=== PATIENT | male | born 1950 | race African-American/Black ===

== ENCOUNTER 2017-08-26 22:21 | Emergency (ER) | payer MEDICARE, MEDICAID ==
[~2017-08-26] VITALS: Ht 175.3 cm; Wt 95.0 kg
[~2017-08-26 22:21] MED LIST: AMLO10TA80 PO; ATOR40TA70 PO; HALO5TAB PO; HYDR25TA PO; LISI-604 PO
[2017-08-27] MEDS ORDERED: HYDROCODONE/ACETAMINOPHEN 10/325MG TABLET PO ONE
[2017-08-27 00:21] LABS: EOSINOPHILS % 1.2 % (0.0-5.0); HEMATOCRIT. 37.8 % (42.0-52.0); HEMOGLOBIN. 12.3 g/dL (14.0-18.0); LYMPHOCYTES % 30.9 % (20.0-50.0); MEAN CORPUSCULAR HEMOGLOBIN 30.2 pg (28.0-32.0); MEAN CORPUSCULAR VOLUME 92.8 fL (80.0-94.0); MEAN PLATELET VOLUME 8.1 fl (7.4-10.4); MONOCYTES % 9.4 % (2.0-8.0); NEUTROPHILS % 57.5 % (40.0-76.0); PLATELET 270 x1000/uL (130-400); RED BLOOD CELL COUNT 4.08 mill/uL (4.7-6.1); RED CELL DISTRIBUTION WIDTH 13.3 % (11.6-14.6)
[2017-08-27 00:28] LABS: PROTHROMBIN TIME 10.6 sec (9.4-11.6)
[2017-08-27 00:30] LABS: CHLORIDE 103 mEq/L (98-107)
[2017-08-27 00:45] LABS: CARBON DIOXIDE 27 mEq/L (21-32); ETHANOL BLOOD < 10 mg/dL
[2017-08-27] MEDS ORDERED: SODIUM CHLORIDE 0.9% 1,000 ML IV ONE (00:57)
[2017-08-27] MEDS ORDERED: INSULIN REGULAR (HUMULIN R) 300UNITS/3ML IV SCH (01:38)
[2017-08-27 02:04] LABS: *AMPHETAMINES SCREEN URINE NEGATIVE (NEGATIVE); *BARBITURATES SCREEN URINE NEGATIVE (NEGATIVE); *BENZODIAZEPINES SCREEN URINE NEGATIVE (NEGATIVE); *COCAINE SCREEN URINE NEGATIVE (NEGATIVE); CANNABINOID URINE SCREEN NEGATIVE (NEGATIVE); METHADONE URINE SCREEN NEGATIVE (NEGATIVE); OPIATES URINE SCREEN NEGATIVE (NEGATIVE); PHENCYCLIDINE URINE SCREEN NEGATIVE (NEGATIVE)
[2017-08-27 05:30] VITALS: BP 127/45
== END 2017-08-27 05:40 | disposition home or self-care (01) ==
LOC: ER 22:33
DX: E86.0 Dehydration (principal); E11.65 Type 2 diabetes mellitus with hyperglycemia; D50.9 Iron deficiency anemia, unspecified; R51 Headache; F17.200 Nicotine dependence, unspecified, uncomplicated
CPT/HCPCS: 36415; 70450; 80053; 80305; 82962; 85025; 85610; 96361; 96374; 99285; G0482; J1815; J7030

== ENCOUNTER 2018-08-02 12:30 | Inpatient (IN) | payer MEDICARE, MEDICAID ==
[~2018-08-02] VITALS: Ht 177.8 cm; Wt 90.7 kg
[2018-08-02 13:59] LABS: HEMATOCRIT. 37.9 % (42.0-52.0); HEMOGLOBIN. 12.9 g/dL (14.0-18.0); MEAN CORPUSCULAR HEMOGLOBIN 32.1 pg (28.0-32.0); MEAN CORPUSCULAR VOLUME 94.6 fL (80.0-94.0); MEAN PLATELET VOLUME 8.2 fl (7.4-10.4); PLATELET 199 x1000/uL (130-400); RED BLOOD CELL COUNT 4.01 mill/uL (4.7-6.1); RED CELL DISTRIBUTION WIDTH 14.4 % (11.6-14.6)
[2018-08-02 14:06] LABS: CHLORIDE 104 mEq/L (98-107)
[2018-08-02 14:35] LABS: PLATELET ESTIMATE NORMAL
[2018-08-02 23:45] VITALS: BP 100/70
[2018-08-03] VITALS: BP 100/70
[2018-08-03] MEDS ORDERED: MEDICATION NOT ON FORMULARY EA (Acetaminophen (Tylenol) 650 MG) PO SCH (01:15)
[2018-08-03] MEDS ORDERED: ATOR40TA70 PO (01:50)
[2018-08-03] MEDS ORDERED: STAR120 PO (01:50)
[2018-08-03] MEDS ORDERED: GABA300S PO (01:50)
[2018-08-03] MEDS ORDERED: DOCU-138 PO (01:50)
[2018-08-03] MEDS ORDERED: ACET-2178 PO (01:50)
[2018-08-03] MEDS ORDERED: LINA5TAB PO (01:50)
[2018-08-03] MEDS ORDERED: ASPI-1158 PO (01:50)
[2018-08-03] MEDS ORDERED: GLYB5TAB7 PO (01:50)
[2018-08-03] MEDS ORDERED: DIVA500T3 PO (01:50)
[2018-08-03] MEDS ORDERED: CLOP75TA16 PO (01:50)
[2018-08-03] MEDS ORDERED: LISI-186 PO (01:50)
[2018-08-03] MEDS ORDERED: HYDR-2510 PO (01:50)
[2018-08-03] MEDS ORDERED: PROT40 PO (01:50)
[2018-08-03] MEDS ORDERED: RISP2 PO (01:50)
[2018-08-03] MEDS ORDERED: ACETAMINOPHEN 325MG TABLET PO PRN (02:45)
[2018-08-03] MEDS ORDERED: DEXTROSE 50% WATER 50ML SYRINGE IV PRN (03:15)
[2018-08-03 04:00] VITALS: BP 116/61
[2018-08-03] MEDS: GABAPENTIN 100MG CAPSULE PO SCH ×3 (07:01→21:14)
[2018-08-03] MEDS: PANTOPRAZOLE 40MG DR TABLET PO SCH (07:01)
[2018-08-03] MEDS: BLOOD SUGAR DIAGNOSTIC STRIP TEST SCH ×4 (07:01→21:14)
[2018-08-03] MEDS ORDERED: MEDICATION NOT ON FORMULARY EA (Pantoprazole Sodium (Protonix) 40 MG) PO SCH (07:20)
[2018-08-03] MEDS ORDERED: MEDICATION NOT ON FORMULARY EA (Divalproex Sodium (Depakote) 500 MG) PO SCH (07:50)
[2018-08-03] MEDS: INSULIN LISPRO 100 UNITS/ML SUBCUT SCH ×4 (07:50→21:15)
[2018-08-03 08:00] VITALS: BP 123/64
[2018-08-03] MEDS ORDERED: MEDICATION NOT ON FORMULARY EA (Gabapentin 100 MG) PO SCH (09:00)
[2018-08-03] MEDS ORDERED: MEDICATION NOT ON FORMULARY EA (Aspirin (Aspirin Ec) 81 MG) PO SCH (09:00)
[2018-08-03] MEDS ORDERED: LINAGLIPTIN 5 MG PO SCH (09:00)
[2018-08-03] MEDS ORDERED: MEDICATION NOT ON FORMULARY EA (Clopidogrel Bisulfate (Plavix) 75 MG) PO SCH (09:00)
[2018-08-03] MEDS ORDERED: RISPERIDONE 2 MG PO SCH (09:00)
[2018-08-03] MEDS ORDERED: MEDICATION NOT ON FORMULARY EA (Docusate Sodium (Colace) 100 MG) PO SCH (09:00)
[2018-08-03] MEDS: RISPERIDONE 1MG TABLET PO SCH ×2 (10:11→17:30)
[2018-08-03] MEDS: METFORMIN HCL 500MG TABLET PO SCH ×2 (10:12→17:29)
[2018-08-03] MEDS: DOCUSATE SODIUM 100MG CAPSULE PO SCH (10:12)
[2018-08-03] MEDS: CLOPIDOGREL 75MG TABLET PO SCH (10:12)
[2018-08-03] MEDS: ASPIRIN 81MG TABLET PO SCH (10:12)
[2018-08-03] MEDS: DIVALPROEX SODIUM 250MG DR TABLET PO SCH ×2 (10:16→17:30)
[2018-08-03] MEDS: LINAGLIPTIN 5MG TABLET PO SCH (10:16)
[2018-08-03 16:00] VITALS: BP 103/64
[2018-08-03 16:02] LABS: HEMATOCRIT. 39.9 % (42.0-52.0); HEMOGLOBIN. 13.3 g/dL (14.0-18.0); MEAN CORPUSCULAR VOLUME 95.8 fL (80.0-94.0); MEAN PLATELET VOLUME 8.1 fl (7.4-10.4); PLATELET 198 x1000/uL (130-400); RED BLOOD CELL COUNT 4.17 mill/uL (4.7-6.1); RED CELL DISTRIBUTION WIDTH 14.6 % (11.6-14.6)
[2018-08-03 16:18] LABS: CHLORIDE 103 mEq/L (98-107)
[2018-08-03 16:29] LABS: CREATINE KINASE 167 IU/L (39-308)
[2018-08-03 16:30] LABS: T4 FREE 1.1 ng/dL (0.76-1.46)
[2018-08-03 16:31] LABS: CREATINE KINASE MB FRACTION 1.9 ng/mL (0.5-3.6)
[2018-08-03 17:11] LABS: ATYPICAL LYMPHOCYTES 1; PLATELET ESTIMATE NORMAL
[2018-08-03 20:00] VITALS: BP 107/77
[2018-08-03 23:36] LABS: CREATINE KINASE MB FRACTION 1.8 ng/mL (0.5-3.6)
[2018-08-03 23:52] VITALS: BP 117/70
[2018-08-04 04:00] VITALS: BP 108/76
[2018-08-04] MEDS: BLOOD SUGAR DIAGNOSTIC STRIP TEST SCH ×2 (06:25→12:11)
[2018-08-04] MEDS: GABAPENTIN 100MG CAPSULE PO SCH ×2 (06:25→14:40)
[2018-08-04] MEDS: PANTOPRAZOLE 40MG DR TABLET PO SCH (06:25)
[2018-08-04] MEDS: INSULIN LISPRO 100 UNITS/ML SUBCUT SCH ×2 (07:50→12:19)
[2018-08-04 08:00] VITALS: BP 85/51
[2018-08-04] MEDS: DOCUSATE SODIUM 100MG CAPSULE PO SCH (09:00)
[2018-08-04] MEDS: LINAGLIPTIN 5MG TABLET PO SCH (09:08)
[2018-08-04] MEDS: METFORMIN HCL 500MG TABLET PO SCH (09:08)
[2018-08-04] MEDS: RISPERIDONE 1MG TABLET PO SCH (09:08)
[2018-08-04] MEDS: DIVALPROEX SODIUM 250MG DR TABLET PO SCH (09:08)
[2018-08-04] MEDS: ASPIRIN 81MG TABLET PO SCH (09:09)
[2018-08-04] MEDS: CLOPIDOGREL 75MG TABLET PO SCH (09:09)
[2018-08-04 11:08] LABS: CREATINE KINASE 120 IU/L (39-308)
[2018-08-04 11:54] VITALS: BP 107/53
[2018-08-04] MEDS ORDERED: BENZONATATE 100MG CAPSULE PO PRN (12:00)
[2018-08-04] MEDS ORDERED: SODIUM CHLORIDE 0.9% 1,000 ML IV SCH (15:45)
[2018-08-04 17:14] VITALS: BP 113/72
== END 2018-08-04 18:00 | DRG 312 ==
LOC: ER 13:57 → 6WST 15:56 → ENRESERV 20:27 → 6WST 23:47
PROVIDERS: ADMIT Internal Medicine; ATTEND Internal Medicine
DX: R55 Syncope and collapse (principal); E44.1 Mild protein-calorie malnutrition; E78.5 Hyperlipidemia, unspecified; E11.9 Type 2 diabetes mellitus without complications; E78.1 Pure hyperglyceridemia; I10 Essential (primary) hypertension; F20.9 Schizophrenia, unspecified; W18.30XA Fall on same level, unspecified, initial encounter; Y93.89 Activity, other specified; Y92.128 Other place in nursing home as the place of occurrence of the external cause; Y99.8 Other external cause status; I25.2 Old myocardial infarction; Z86.73 Personal history of transient ischemic attack (TIA), and cerebral infarction without residual deficits; Z91.81 History of falling; Z68.28 Body mass index [BMI] 28.0-28.9, adult; Z79.899 Other long term (current) drug therapy
CPT/HCPCS: 36415; 70551; 71045; 78582; 80048; 80061; 82550; 82553; 82962; 83036; 83880; 84134; 84439; 84443; 84484; 85379; 93005; 93306; 93880; 93970; 97162; 99285; A9558; J1815

== ENCOUNTER 2018-11-05 18:17 | Emergency (ER) | payer MEDICARE, MEDICAID ==
[~2018-11-05] VITALS: Ht 170.2 cm; Wt 91.0 kg
[~2018-11-05 18:17] MED LIST changes: +ACET-2178 PO; +ASPI-1158 PO; +CLOP75TA16 PO; +DIVA500T3 PO; +DOCU-138 PO; +GABA300S PO; +GLYB5TAB7 PO; +HYDR-2510 PO; +LINA5TAB PO; +LISI-186 PO; +PROT40 PO; +RISP2 PO; +STAR120 PO
[2018-11-05 23:15] LABS: BASOPHILS % 0.5 % (0.0-2.0); EOSINOPHILS % 0.1 % (0.0-5.0); HEMATOCRIT. 36.8 % (42.0-52.0); HEMOGLOBIN. 12.5 g/dL (14.0-18.0); LYMPHOCYTES % 16.5 % (20.0-50.0); MEAN CORPUSCULAR HEMOGLOBIN 31.9 pg (28.0-32.0); MEAN CORPUSCULAR VOLUME 93.6 fL (80.0-94.0); MEAN PLATELET VOLUME 8.8 fl (7.4-10.4); NEUTROPHILS % 69.9 % (40.0-76.0); PLATELET 193 x1000/uL (130-400); RED BLOOD CELL COUNT 3.94 mill/uL (4.7-6.1); RED CELL DISTRIBUTION WIDTH 13.8 % (11.6-14.6)
[2018-11-05 23:21] LABS: CHLORIDE 104 mEq/L (98-107)
[2018-11-06 01:08] LABS: CLARITY URINE CLEAR (CLEAR); COLOR URINE YELLOW (YELLOW); KETONES URINE NEGATIVE (NEGATIVE); LEUKOCYTE ESTERASE URINE NEGATIVE (NEGATIVE); NITRITE URINE NEGATIVE (NEGATIVE); OCCULT BLOOD URINE 2+ (NEGATIVE); PH URINE 7.5 (4.5-8.0); PROTEIN URINE NEGATIVE (NEGATIVE); SPECIFIC GRAVITY URINE 1.017 (1.005-1.030)
[2018-11-06 04:31] VITALS: BP 132/71
== END 2018-11-06 04:32 | disposition home or self-care (01) ==
LOC: ER 18:17
DX: R53.1 Weakness (principal); E11.9 Type 2 diabetes mellitus without complications; I10 Essential (primary) hypertension; F20.9 Schizophrenia, unspecified; Z86.73 Personal history of transient ischemic attack (TIA), and cerebral infarction without residual deficits; Z79.01 Long term (current) use of anticoagulants; Z79.82 Long term (current) use of aspirin; Z79.899 Other long term (current) drug therapy
CPT/HCPCS: 36415; 99283

== ENCOUNTER 2019-04-23 15:19 | Inpatient (IN) | payer MEDICARE, MEDICAID ==
[~2019-04-23] VITALS: Ht 175.3 cm; Wt 95.3 kg
[~2019-04-23 15:19] MED LIST changes: -ACET-2178 PO; -CLOP75TA16 PO; +CLOP75TA4 PO; +TOPUD PO
[2019-04-23] MEDS ORDERED: SODIUM CHLORIDE 0.9% 1,000 ML IV ONE (16:02)
[2019-04-23 16:45] LABS: BASOPHILS % 0.8 % (0.0-2.0); EOSINOPHILS % 0.5 % (0.0-5.0); HEMATOCRIT. 33.7 % (42.0-52.0); HEMOGLOBIN. 11.5 g/dL (14.0-18.0); LYMPHOCYTES % 34.8 % (20.0-50.0); MEAN CORPUSCULAR HEMOGLOBIN 32.5 pg (28.0-32.0); MEAN CORPUSCULAR VOLUME 95.2 fL (80.0-94.0); MEAN PLATELET VOLUME 8.1 fl (7.4-10.4); MONOCYTES % 10.8 % (2.0-8.0); NEUTROPHILS % 53.1 % (40.0-76.0); PLATELET 198 x1000/uL (130-400); RED BLOOD CELL COUNT 3.54 mill/uL (4.7-6.1); RED CELL DISTRIBUTION WIDTH 14.4 % (11.6-14.6)
[2019-04-23 16:52] LABS: CHLORIDE 109 mEq/L (98-107)
[2019-04-23 16:56] LABS: ETHANOL BLOOD < 10 mg/dL
[2019-04-23 17:00] LABS: CREATINE KINASE 230 IU/L (39-308)
[2019-04-23 18:15] LABS: CLARITY URINE CLEAR (CLEAR); COLOR URINE YELLOW (YELLOW); KETONES URINE NEGATIVE (NEGATIVE); LEUKOCYTE ESTERASE URINE NEGATIVE (NEGATIVE); NITRITE URINE NEGATIVE (NEGATIVE); OCCULT BLOOD URINE NEGATIVE (NEGATIVE); PH URINE 5.5 (4.5-8.0); PROTEIN URINE NEGATIVE (NEGATIVE); SPECIFIC GRAVITY URINE 1.016 (1.005-1.030)
[2019-04-23 18:26] LABS: *BARBITURATES SCREEN URINE NEGATIVE (NEGATIVE); *BENZODIAZEPINES SCREEN URINE NEGATIVE (NEGATIVE)
[2019-04-23 18:27] LABS: *AMPHETAMINES SCREEN URINE NEGATIVE (NEGATIVE); *COCAINE SCREEN URINE NEGATIVE (NEGATIVE); CANNABINOID URINE SCREEN NEGATIVE (NEGATIVE); METHADONE URINE SCREEN NEGATIVE (NEGATIVE); OPIATES URINE SCREEN NEGATIVE (NEGATIVE); PHENCYCLIDINE URINE SCREEN NEGATIVE (NEGATIVE)
[2019-04-23 22:00] VITALS: BP 150/80
[2019-04-23 23:06] VITALS: BP 150/80
[2019-04-23] MEDS ORDERED: AMLO5TAB88 PO (23:43)
[2019-04-23] MEDS ORDERED: GABA-529 PO (23:43)
[2019-04-24 00:56] VITALS: BP 127/73
[2019-04-24] MEDS ORDERED: ACETAMINOPHEN 325MG TABLET PO PRN ×2 (01:00→12:15)
[2019-04-24 04:00] VITALS: BP 132/74
[2019-04-24] MEDS: PANTOPRAZOLE 40MG DR TABLET PO SCH (06:34)
[2019-04-24 08:00] VITALS: BP 122/66
[2019-04-24] MEDS: HYDROCHLOROTHIAZIDE 25MG TABLET PO SCH (09:14)
[2019-04-24] MEDS: AMLODIPINE 5MG TABLET PO SCH (09:14)
[2019-04-24] MEDS: GABAPENTIN 100MG CAPSULE PO SCH ×3 (09:14→16:35)
[2019-04-24] MEDS: CLOPIDOGREL 75MG TABLET PO SCH (09:14)
[2019-04-24] MEDS: LINAGLIPTIN 5MG TABLET PO SCH (09:14)
[2019-04-24] MEDS: DIVALPROEX SODIUM 250MG DR TABLET PO SCH ×2 (09:15→16:35)
[2019-04-24] MEDS: GLYBURIDE 5MG TABLET PO SCH ×2 (09:16→16:35)
[2019-04-24] MEDS: LISINOPRIL 5MG TABLET PO SCH ×2 (09:16→21:32)
[2019-04-24] MEDS: RISPERIDONE 1MG TABLET PO SCH ×2 (09:16→16:35)
[2019-04-24] MEDS: ENOXAPARIN 30MG/0.3ML SYR SUBCUT SCH ×2 (09:17→21:32)
[2019-04-24 10:49] LABS: BASOPHILS % 0.5 % (0.0-2.0); HEMOGLOBIN. 11.7 g/dL (14.0-18.0); LYMPHOCYTES % 37.8 % (20.0-50.0); MEAN CORPUSCULAR HEMOGLOBIN 31.8 pg (28.0-32.0); MEAN CORPUSCULAR VOLUME 95.2 fL (80.0-94.0); MEAN PLATELET VOLUME 8.2 fl (7.4-10.4); MONOCYTES % 10.6 % (2.0-8.0); NEUTROPHILS % 50.1 % (40.0-76.0); PLATELET 190 x1000/uL (130-400); RED BLOOD CELL COUNT 3.68 mill/uL (4.7-6.1); RED CELL DISTRIBUTION WIDTH 13.8 % (11.6-14.6)
[2019-04-24 11:09] LABS: CHLORIDE 109 mEq/L (98-107)
[2019-04-24 12:00] VITALS: BP 113/68
[2019-04-24] MEDS ORDERED: NA PHOS,M-B/NA PHOS,DI-BA ENEMA 118ML PR PRN (12:15)
[2019-04-24] MEDS ORDERED: DIPHENHYDRAMINE 50MG/ML VIAL IV PRN (12:15)
[2019-04-24] MEDS: INSULIN LISPRO 100 UNITS/ML SUBCUT SCH ×3 (12:15→21:00)
[2019-04-24] MEDS ORDERED: ACETAMINOPHEN 650MG/20.3ML UDC GT PRN (12:15)
[2019-04-24] MEDS ORDERED: DEXTROSE 50% WATER 50ML SYRINGE IV PRN (12:15)
[2019-04-24] MEDS ORDERED: CLONIDINE 0.1MG TABLET PO PRN (12:15)
[2019-04-24] MEDS ORDERED: IPRATROPIUM/ALBUTEROL 0.5-3(2.5)MG/3ML NEB HHN PRN (12:15)
[2019-04-24] MEDS ORDERED: MAGNESIUM/ALUMINUM HYDROXIDE/SIMETHICONE 30ML UDC PO PRN (12:15)
[2019-04-24] MEDS: SODIUM CHLORIDE 0.9% INJ 3ML FLUSH IVF SCH ×2 (13:55→21:34)
[2019-04-24 16:01] VITALS: BP 106/67
[2019-04-24] MEDS: BLOOD SUGAR DIAGNOSTIC STRIP TEST SCH ×2 (16:45→21:34)
[2019-04-24 20:00] VITALS: BP 110/62
[2019-04-24] MEDS: ATORVASTATIN CALCIUM 40MG TABLET PO SCH (21:34)
[2019-04-25] VITALS: BP 129/77
[2019-04-25 04:00] VITALS: BP 137/75
[2019-04-25 06:31] LABS: BASOPHILS % 0.5 % (0.0-2.0); HEMOGLOBIN. 11.7 g/dL (14.0-18.0); LYMPHOCYTES % 44.5 % (20.0-50.0); MEAN CORPUSCULAR VOLUME 95.3 fL (80.0-94.0); MEAN PLATELET VOLUME 8.3 fl (7.4-10.4); MONOCYTES % 11.7 % (2.0-8.0); NEUTROPHILS % 42.3 % (40.0-76.0); PLATELET 183 x1000/uL (130-400); RED BLOOD CELL COUNT 3.67 mill/uL (4.7-6.1); RED CELL DISTRIBUTION WIDTH 14.3 % (11.6-14.6)
[2019-04-25] MEDS: PANTOPRAZOLE 40MG DR TABLET PO SCH (06:41)
[2019-04-25] MEDS: GLYBURIDE 5MG TABLET PO SCH (06:41)
[2019-04-25] MEDS: SODIUM CHLORIDE 0.9% INJ 3ML FLUSH IVF SCH ×3 (06:41→21:18)
[2019-04-25] MEDS: BLOOD SUGAR DIAGNOSTIC STRIP TEST SCH ×4 (06:45→21:18)
[2019-04-25 06:50] LABS: CHLORIDE 106 mEq/L (98-107)
[2019-04-25 07:04] LABS: HDL CHOLESTEROL 39 mg/dL (40-59)
[2019-04-25 07:07] LABS: LDL CHOLESTEROL 54 mg/dL (5-100)
[2019-04-25 07:11] LABS: VITAMIN B12 SERUM 1128 pg/mL (211-911)
[2019-04-25] MEDS: INSULIN LISPRO 100 UNITS/ML SUBCUT SCH ×4 (07:15→21:00)
[2019-04-25 08:00] VITALS: BP 97/52
[2019-04-25] MEDS: LINAGLIPTIN 5MG TABLET PO SCH (09:19)
[2019-04-25] MEDS: CLOPIDOGREL 75MG TABLET PO SCH (09:19)
[2019-04-25] MEDS: DIVALPROEX SODIUM 250MG DR TABLET PO SCH ×2 (09:20→18:18)
[2019-04-25] MEDS: GABAPENTIN 100MG CAPSULE PO SCH ×3 (09:20→17:00)
[2019-04-25] MEDS: AMLODIPINE 5MG TABLET PO SCH (09:20)
[2019-04-25] MEDS: HYDROCHLOROTHIAZIDE 25MG TABLET PO SCH (09:20)
[2019-04-25] MEDS: LISINOPRIL 5MG TABLET PO SCH ×2 (09:20→21:00)
[2019-04-25] MEDS: RISPERIDONE 1MG TABLET PO SCH ×2 (09:20→18:18)
[2019-04-25] MEDS: ENOXAPARIN 30MG/0.3ML SYR SUBCUT SCH ×2 (09:21→21:18)
[2019-04-25 10:16] LABS: INR 1.1; PROTHROMBIN TIME 11.3 sec (9.6-11.0)
[2019-04-25 12:00] VITALS: BP 113/64
[2019-04-25 16:00] VITALS: BP 112/62
[2019-04-25 20:00] VITALS: BP 99/61
[2019-04-25] MEDS: ATORVASTATIN CALCIUM 40MG TABLET PO SCH (21:18)
[2019-04-26] VITALS: BP 102/62
[2019-04-26 04:00] VITALS: BP 115/64
[2019-04-26] MEDS: BLOOD SUGAR DIAGNOSTIC STRIP TEST SCH ×3 (06:36→16:37)
[2019-04-26] MEDS: INSULIN LISPRO 100 UNITS/ML SUBCUT SCH ×3 (06:36→16:57)
[2019-04-26] MEDS ORDERED: GLYBURIDE 2.5MG TABLET PO SCH (06:45)
[2019-04-26] MEDS: SODIUM CHLORIDE 0.9% INJ 3ML FLUSH IVF SCH ×2 (06:53→13:52)
[2019-04-26] MEDS: PANTOPRAZOLE 40MG DR TABLET PO SCH (06:53)
[2019-04-26 08:00] VITALS: BP 108/55
[2019-04-26] MEDS: LISINOPRIL 5MG TABLET PO SCH (09:00)
[2019-04-26] MEDS: AMLODIPINE 5MG TABLET PO SCH (09:00)
[2019-04-26] MEDS: GABAPENTIN 100MG CAPSULE PO SCH ×3 (09:21→16:56)
[2019-04-26] MEDS: HYDROCHLOROTHIAZIDE 25MG TABLET PO SCH (09:22)
[2019-04-26] MEDS: DIVALPROEX SODIUM 250MG DR TABLET PO SCH ×2 (09:22→16:56)
[2019-04-26] MEDS: RISPERIDONE 1MG TABLET PO SCH ×2 (09:22→16:56)
[2019-04-26] MEDS: LINAGLIPTIN 5MG TABLET PO SCH (09:22)
[2019-04-26] MEDS: CLOPIDOGREL 75MG TABLET PO SCH (09:22)
[2019-04-26] MEDS: ENOXAPARIN 30MG/0.3ML SYR SUBCUT SCH (09:23)
[2019-04-26 12:00] VITALS: BP 110/59
[2019-04-26 14:30] VITALS: BP 110/59
[2019-04-26 16:00] VITALS: BP 107/70
[2019-04-27 04:12] LABS: HIV SCREEN 4G Non Reactive (Non Reactive)
== END 2019-04-26 18:32 | DRG 56 ==
LOC: ER 15:19 → 5WST 18:43 → EDBEDREQ 18:47 → EDBEDREQTM 18:47 → ENRESERV 20:50
PROVIDERS: ADMIT Family Medicine; ATTEND Family Medicine
DX: G91.9 Hydrocephalus, unspecified (principal); G93.41 Metabolic encephalopathy; N17.0 Acute kidney failure with tubular necrosis; J84.9 Interstitial pulmonary disease, unspecified; F20.9 Schizophrenia, unspecified; I10 Essential (primary) hypertension; R62.7 Adult failure to thrive; F17.210 Nicotine dependence, cigarettes, uncomplicated; E11.649 Type 2 diabetes mellitus with hypoglycemia without coma; Z86.73 Personal history of transient ischemic attack (TIA), and cerebral infarction without residual deficits; Z79.02 Long term (current) use of antithrombotics/antiplatelets; Z79.82 Long term (current) use of aspirin; Z79.899 Other long term (current) drug therapy; Z68.31 Body mass index [BMI] 31.0-31.9, adult
CPT/HCPCS: 36415; 70551; 71045; 80048; 80061; 80305; 80320; 81003; 82550; 82607; 82962; 83605; 83880; 84443; 84484; 87389; 92610; 93005; 97162; 97166; 99285; J1650; J1815; J7030; G0480

== ENCOUNTER 2020-03-01 17:47 | Emergency (ER) | payer MEDICARE, MEDICAID ==
[~2020-03-01] VITALS: Ht 175.3 cm; Wt 82.0 kg
[~2020-03-01 17:47] MED LIST changes: -AMLO10TA80 PO; +AMLO5TAB88 PO; -ASPI-1158 PO; -DOCU-138 PO; +GABA-529 PO; -GABA300S PO; -GLYB5TAB7 PO; -HALO5TAB PO; -HYDR-2510 PO; -HYDR25TA PO; -LISI-604 PO; -RISP2 PO; -STAR120 PO; -TOPUD PO
[2020-03-01 18:36] LABS: BASOPHILS % 0.6 % (0.0-2.0); HEMATOCRIT. 36.8 % (42.0-52.0); HEMOGLOBIN. 12.9 g/dL (14.0-18.0); LYMPHOCYTES % 33.2 % (20.0-50.0); MEAN CORPUSCULAR HEMOGLOBIN 32.8 pg (28.0-32.0); MEAN CORPUSCULAR VOLUME 93.6 fL (80.0-94.0); MEAN PLATELET VOLUME 8.6 fl (7.4-10.4); MONOCYTES % 9.4 % (2.0-8.0); NEUTROPHILS % 55.8 % (40.0-76.0); PLATELET 183 x1000/uL (130-400); RED BLOOD CELL COUNT 3.93 mill/uL (4.7-6.1); RED CELL DISTRIBUTION WIDTH 13.9 % (11.6-14.6)
[2020-03-01 18:51] LABS: PROTHROMBIN TIME 10.9 sec (9.6-11.0)
[2020-03-01 19:14] LABS: CHLORIDE 106 mEq/L (98-107)
[2020-03-01 22:14] LABS: CLARITY URINE CLEAR (CLEAR); COLOR URINE YELLOW (YELLOW); KETONES URINE NEGATIVE (NEGATIVE); LEUKOCYTE ESTERASE URINE NEGATIVE (NEGATIVE); NITRITE URINE NEGATIVE (NEGATIVE); OCCULT BLOOD URINE NEGATIVE (NEGATIVE); PH URINE 6.5 (4.5-8.0); PROTEIN URINE NEGATIVE (NEGATIVE); SPECIFIC GRAVITY URINE 1.004 (1.005-1.030)
[2020-03-01 23:01] VITALS: BP 153/84
== END 2020-03-01 23:59 | disposition home or self-care (01) ==
LOC: ER 17:57 → CANBEDREQ 03-02 00:17
DX: R53.1 Weakness (principal); R60.9 Edema, unspecified; E11.9 Type 2 diabetes mellitus without complications; I10 Essential (primary) hypertension; F20.9 Schizophrenia, unspecified; Z86.73 Personal history of transient ischemic attack (TIA), and cerebral infarction without residual deficits
CPT/HCPCS: 36415; 71045; 80053; 81003; 83880; 84484; 85025; 93005; 93970; 99285

== ENCOUNTER 2020-12-12 20:47 | Emergency (ER) | payer MEDICARE, MEDICAID ==
[~2020-12-12] VITALS: Ht 177.8 cm; Wt 98.0 kg
[~2020-12-12 20:47] MED LIST changes: +CLOP-31 PO; -CLOP75TA4 PO
[2020-12-12 22:47] LABS: BASOPHILS % 0.5 % (0.0-2.0); EOSINOPHILS % 0.9 % (0.0-5.0); HEMATOCRIT. 38.1 % (42.0-52.0); HEMOGLOBIN. 13.1 g/dL (14.0-18.0); MEAN CORPUSCULAR HEMOGLOBIN 31.8 pg (28.0-32.0); MEAN CORPUSCULAR VOLUME 92.3 fL (80.0-94.0); MEAN PLATELET VOLUME 8.5 fl (7.4-10.4); MONOCYTES % 9.1 % (2.0-8.0); NEUTROPHILS % 51.5 % (40.0-76.0); PLATELET 225 x1000/uL (130-400); RED BLOOD CELL COUNT 4.13 mill/uL (4.7-6.1); RED CELL DISTRIBUTION WIDTH 15.2 % (11.6-14.6)
[2020-12-12 22:49] LABS: CHLORIDE 109 mEq/L (98-107)
[2020-12-12] MEDS ORDERED: CLONIDINE 0.1MG TABLET PO ONE (23:15)
[2020-12-13 01:42] VITALS: BP 155/78
== END 2020-12-13 01:42 | disposition home or self-care (01) ==
LOC: ER 20:47
DX: R60.9 Edema, unspecified (principal); I10 Essential (primary) hypertension; F31.9 Bipolar disorder, unspecified; J44.9 Chronic obstructive pulmonary disease, unspecified; F20.9 Schizophrenia, unspecified; K21.9 Gastro-esophageal reflux disease without esophagitis; E78.5 Hyperlipidemia, unspecified; I69.921 Dysphasia following unspecified cerebrovascular disease
CPT/HCPCS: 36415; 71045; 80053; 83880; 84484; 85025; 93005; 93970; 99285; A4315

== ENCOUNTER 2024-06-02 21:33 | Inpatient (IN) | payer MEDICARE, MEDICAID ==
[~2024-06-02] VITALS: Ht 177.8 cm; Wt 95.3 kg
[~2024-06-02 21:33] MED LIST changes: +ARIP5TAB51 PO; +DONE10TA43 PO; +FOLI-43 PO; +HYDR-4001 MT; +INSU100I95 SUBCUT; +METF-414 PO; +MYL30 MT; +SITA100T11 PO
[2024-06-02] MEDS: ONDANSETRON HCL 4MG/2ML INJ IV STA (23:24)
[2024-06-02 23:47] LABS: BASOPHILS % 0.3 % (0.0-2.0); EOSINOPHILS % 1.7 % (0.0-5.0); HEMATOCRIT. 34.8 % (42.0-52.0); HEMOGLOBIN. 11.4 g/dL (14.0-18.0); LYMPHOCYTES % 24.3 % (20.0-50.0); MEAN CORPUSCULAR HEMOGLOBIN 30.7 pg (28.0-32.0); MEAN CORPUSCULAR HGB CONC 32.8 g/dL (31.0-37.0); MEAN CORPUSCULAR VOLUME 93.5 fL (80.0-94.0); MONOCYTES % 9.1 % (2.0-8.0); NEUTROPHILS % 64.6 % (40.0-76.0); PLATELET 260 x1000/uL (130-400); RED BLOOD CELL COUNT 3.72 mill/uL (4.7-6.1); RED CELL DISTRIBUTION WIDTH 17.4 % (11.6-14.6); WHITE BLOOD COUNT 6.4 x1000/uL (4.5-11.0)
[2024-06-02 23:50] LABS: CHLORIDE 114 mEq/L (98-107); POTASSIUM 3.9 mEq/L (3.5-5.1); SODIUM 146 mEq/L (136-145)
[2024-06-02 23:51] LABS: CALCIUM 8.5 mg/dL (8.7-10.4); CARBON DIOXIDE 30 mEq/L (21-32)
[2024-06-02 23:56] LABS: CREATININE 1.3 mg/dL (0.6-1.3); GLUCOSE 88 mg/dL (70-105); UREA NITROGEN BLOOD 20 mg/dL (9-23)
[2024-06-02 23:58] LABS: ALANINE AMINOTRANSFERASE 12 IU/L (10-49); ALBUMIN 3.3 g/dL (3.2-4.8); ASPARTATE AMINOTRANSFERASE 22 IU/L (<34); BILIRUBIN DIRECT 0.2 mg/dL (<=3.0); BILIRUBIN TOTAL 0.6 mg/dL (0.1-1.0); PROTEIN TOTAL 6.2 g/dL (6.0-8.3)
[2024-06-03] MEDS ORDERED: DEXTROSE 50% WATER 50ML SYRINGE IV PRN ×2 (02:15)
[2024-06-03] MEDS ORDERED: DOCUSATE SODIUM 100MG CAPSULE PO PRN (02:15)
[2024-06-03] MEDS ORDERED: ONDANSETRON HCL 4MG/2ML INJ IV PRN (02:15)
[2024-06-03] MEDS ORDERED: ACETAMINOPHEN 325MG TABLET PO PRN ×2 (02:15)
[2024-06-03] MEDS ORDERED: IPRATROPIUM/ALBUTEROL 0.5-3(2.5)MG/3ML NEB HHN PRN (02:15)
[2024-06-03] MEDS ORDERED: GUAIFENESIN 200MG/10ML SUGAR FREE UDC PO PRN (02:15)
[2024-06-03] MEDS: SODIUM CHLORIDE 0.45% 1,000 ML IV SCH (03:59)
[2024-06-03 05:56] LABS: HEMOGLOBIN 11.8 g/dL (14.0-18.0); MEAN CORPUSCULAR HEMOGLOBIN 30.6 pg (28.0-32.0); MEAN CORPUSCULAR HGB CONC 32.8 g/dL (31.0-37.0); MEAN CORPUSCULAR VOLUME 93.3 fL (80.0-94.0); PLATELET 254 x1000/uL (130-400); RED BLOOD CELL COUNT 3.86 mill/uL (4.7-6.1); WHITE BLOOD COUNT 7.2 x1000/uL (4.5-11.0)
[2024-06-03 06:04] LABS: CHLORIDE 113 mEq/L (98-107); POTASSIUM 3.7 mEq/L (3.5-5.1); SODIUM 144 mEq/L (136-145)
[2024-06-03 06:05] LABS: CALCIUM 8.4 mg/dL (8.7-10.4); CARBON DIOXIDE 28 mEq/L (21-32)
[2024-06-03 06:10] LABS: CREATININE 1.2 mg/dL (0.6-1.3); GLUCOSE 83 mg/dL (70-105); TRIGLYCERIDE 83 mg/dL (0-150); UREA NITROGEN BLOOD 18 mg/dL (9-23)
[2024-06-03 06:11] LABS: LDL CHOLESTEROL 36 mg/dL (5-100)
[2024-06-03 06:12] LABS: CHOLESTEROL 103 mg/dL (<200); HDL CHOLESTEROL 46 mg/dL (>55); PHOSPHORUS 2.7 mg/dL (2.5-4.9)
[2024-06-03] MEDS: PANTOPRAZOLE 40MG DR TABLET PO SCH (08:06)
[2024-06-03] MEDS: INSULIN LISPRO 100 UNITS/ML SUBCUT SCH (08:20)
[2024-06-03] MEDS: BLOOD SUGAR DIAGNOSTIC STRIP TEST SCH (09:16)
[2024-06-03] MEDS: AMLODIPINE 5MG TABLET PO SCH (09:19)
[2024-06-03] MEDS: ENOXAPARIN 30MG/0.3ML SYR SUBCUT SCH (09:19)
[2024-06-03] MEDS: ARIPIPRAZOLE 5MG TABLET PO SCH (09:23)
[2024-06-03 12:00] VITALS: BP 153/83; PULSE 69; RESP 18; TEMP 35.584
[2024-06-03] MEDS: CLONIDINE 0.1MG TABLET PO PRN (15:38)
[2024-06-03 16:08] VITALS: BP 166/88; PULSE 70; RESP 20; TEMP 36.33624; O2SAT 100
[2024-06-03] MEDS: ATORVASTATIN CALCIUM 40MG TABLET PO SCH (20:29)
[2024-06-03] MEDS ORDERED: DIVA-73 PO (21:03)
[2024-06-03] MEDS ORDERED: ARIP30TA17 PO (21:05)
[2024-06-03] MEDS: LORAZEPAM 0.5MG TABLET PO PRN (21:44)
[2024-06-04 04:00] VITALS: BP 146/66; PULSE 68; RESP 19; TEMP 36.3918; O2SAT 99
[2024-06-04 08:00] VITALS: BP 160/79; PULSE 63; RESP 18; TEMP 36.114; O2SAT 99
[2024-06-04] MEDS: AMLODIPINE 10MG TABLET PO SCH (08:29)
[2024-06-04 12:00] VITALS: BP 159/73; PULSE 55; RESP 20; TEMP 36.55848; O2SAT 99
[2024-06-04 16:00] VITALS: BP 137/56; PULSE 78; RESP 19; TEMP 36.44736; O2SAT 98
[2024-06-04 20:00] VITALS: BP 161/75; PULSE 64; RESP 20; TEMP 36.3918; O2SAT 99
[2024-06-04 23:53] LABS: CHLORIDE 109 mEq/L (98-107); SODIUM 142 mEq/L (136-145)
[2024-06-04 23:54] LABS: CALCIUM 8.8 mg/dL (8.7-10.4); CARBON DIOXIDE 29 mEq/L (21-32)
[2024-06-04 23:58] LABS: IRON 57 ug/dL (65-175)
[2024-06-04 23:59] LABS: CREATININE 1.2 mg/dL (0.6-1.3); GLUCOSE 115 mg/dL (70-105); UREA NITROGEN BLOOD 13 mg/dL (9-23)
[2024-06-05 00:01] LABS: TOTAL IRON BINDING CAPACITY 263 ug/dl (250-425)
[2024-06-05 08:00] VITALS: BP 169/81; PULSE 71; RESP 20; TEMP 36.33624; O2SAT 100
[2024-06-05 12:00] VITALS: BP 196/100; PULSE 59; RESP 20; TEMP 36.33624; O2SAT 96
[2024-06-05 15:17] VITALS: BP 111/60
[2024-06-05 16:00] VITALS: BP 111/75; PULSE 84; RESP 18; TEMP 36.22512; O2SAT 98
[2024-06-05 20:00] VITALS: BP 160/82; PULSE 64; RESP 18; TEMP 36.16956; O2SAT 100
[2024-06-06] VITALS: BP 139/70; PULSE 56; RESP 18; TEMP 36.114; O2SAT 100
[2024-06-06 04:00] VITALS: BP 178/88; PULSE 63; RESP 18; TEMP 36.3918; O2SAT 100
[2024-06-06 08:00] VITALS: BP 175/80; PULSE 69; RESP 20; TEMP 36.114; TEMP 36.11400; O2SAT 99
[2024-06-06 15:17] VITALS: BP 144/74; PULSE 51; TEMP 97.1; O2SAT 99
== END 2024-06-06 15:25 | DRG 392 ==
LOC: ER 21:33 → 6WST 06-03 00:51 → EDBEDREQSVC 06-03 00:56 → EDBEDREQDT 06-03 00:56 → EDBEDREQTM 06-03 00:56 → EDBEDREQ 06-03 00:56
PROVIDERS: ADMIT Internal Medicine; ATTEND Internal Medicine
DX: A08.4 Viral intestinal infection, unspecified (principal); E11.9 Type 2 diabetes mellitus without complications; E86.0 Dehydration; F20.9 Schizophrenia, unspecified; J44.9 Chronic obstructive pulmonary disease, unspecified; I10 Essential (primary) hypertension; K21.9 Gastro-esophageal reflux disease without esophagitis; D50.9 Iron deficiency anemia, unspecified; F17.210 Nicotine dependence, cigarettes, uncomplicated; D63.8 Anemia in other chronic diseases classified elsewhere; Z74.01 Bed confinement status; R15.9 Full incontinence of feces; I69.30 Unspecified sequelae of cerebral infarction
CPT/HCPCS: 36415; 71045; 74176; 80048; 80061; 80076; 82962; 83036; 83540; 83550; 83605; 83735; 84100; 85025; 85027; 93005; 93970; 97162; 99285; J1650; J1815; J2405

== ENCOUNTER 2025-01-28 08:11 | Inpatient (IN) | payer MEDICARE, MEDICAID ==
[2025-01-28] VITALS (8 sets, daily range): BP systolic 82–129; BP diastolic 33–58; PULSE 48–63; RESP 17–25; TEMP 36.4–36.7; O2SAT 98–100
[~2025-01-28] VITALS: Ht 182.9 cm; Wt 48.5 kg
[~2025-01-28 08:11] MED LIST changes: +ARIP30TA59 PO; -ARIP5TAB51 PO; +DIVA-73 PO; -DIVA500T3 PO; -HYDR-4001 MT; -INSU100I95 SUBCUT; -LINA5TAB PO; -LISI-186 PO; -METF-414 PO; -MYL30 MT; -PROT40 PO; -SITA100T11 PO
[2025-01-28 08:53] LABS: HEMATOCRIT. 21.6 % (42.0-52.0); MEAN CORPUSCULAR HEMOGLOBIN 29.6 pg (28.0-32.0); MEAN CORPUSCULAR HGB CONC 32.3 g/dL (31.0-37.0); MEAN CORPUSCULAR VOLUME 91.7 fL (80.0-94.0); RED BLOOD CELL COUNT 2.35 mill/uL (4.7-6.1); RED CELL DISTRIBUTION WIDTH 26.5 % (11.6-14.6)
[2025-01-28 08:58] LABS: DIFFERENTIAL COMMENT 1
[2025-01-28 09:02] LABS: CHLORIDE 110 mEq/L (98-107); SODIUM 141 mEq/L (136-145)
[2025-01-28 09:03] LABS: CALCIUM 9.2 mg/dL (8.7-10.4); CARBON DIOXIDE 23 mEq/L (21-32)
[2025-01-28 09:04] LABS: BG CARBOXYHEMOGLOBIN 0.6 % (0.5-1.5); BG DEOXYHEMOGLOBIN 10.5 % (0.0-5.0); BG FRACTION INSPIRED OXYGEN 40; BG HCO3 ACT 23.6 mmol/L (21.0-28.0); BG METHEMOGLOBIN 0.6 % (0.5-1.5); BG OXYGEN SATURATION 89.4 % (94.0-98.0); BG OXYHEMOGLOBIN 88.3 % (94.0-98.0); BG PCO2 44.3 mmHg (35.0-48.0); BG PH 7.345 (7.350-7.450); BG PO2 66.3 mmHg (83.0-108.0); BG SAMPLE SITE RIGHT RADIAL; BG VENT MODE NASAL CANNULA
[2025-01-28 09:08] LABS: GLUCOSE 81 mg/dL (70-105); UREA NITROGEN BLOOD 45 mg/dL (9-23)
[2025-01-28 09:09] LABS: TROPONIN I HIGH SENSITIVITY 15 ng/L (3.0-53)
[2025-01-28 09:10] LABS: ALANINE AMINOTRANSFERASE 45 IU/L (10-49); ALBUMIN 4.1 g/dL (3.2-4.8); ASPARTATE AMINOTRANSFERASE 35 IU/L (<34); BILIRUBIN DIRECT 0.2 mg/dL (<=3.0); BILIRUBIN TOTAL 0.6 mg/dL (0.1-1.0); PROTEIN TOTAL 7.9 g/dL (6.0-8.3)
[2025-01-28 09:46] LABS: CREATININE 2.5 mg/dL (0.6-1.3)
[2025-01-28 09:49] LABS: CLARITY URINE CLEAR (CLEAR); COLOR URINE YELLOW (YELLOW); GLUCOSE URINE NEGATIVE (NEGATIVE); KETONES URINE NEGATIVE (NEGATIVE); LEUKOCYTE ESTERASE URINE NEGATIVE (NEGATIVE); NITRITE URINE NEGATIVE (NEGATIVE); OCCULT BLOOD URINE NEGATIVE (NEGATIVE); PROTEIN URINE 2+ (NEGATIVE); SPECIFIC GRAVITY URINE 1.017 (1.005-1.030)
[2025-01-28 09:49] LABS: POTASSIUM 6.7 mEq/L (3.5-5.1)
[2025-01-28] MEDS: LACTATED RINGERS 500 ML IV SCH (09:54)
[2025-01-28] MEDS: AZITHROMYCIN 500MG/250ML 250 ML IV STA (09:58)
[2025-01-28 10:05] LABS: BACTERIA URINE FEW; RBC URINE NONE SEEN /hpf (0-2); SQUAMOUS EPITHELIAL CELL URINE RARE /lpf (RARE/1+); WBC URINE 0-2 /hpf (0-2); YEAST URINE NONE SEEN
[2025-01-28 10:06] LABS: NUCLEATED RED BLOOD CELLS 23 /100 WBC
[2025-01-28 10:07] LABS: ANISOCYTOSIS 4+; PLATELET ESTIMATE SLIGHTLY DECREASED
[2025-01-28 10:10] LABS: ROULEAUX 1+
[2025-01-28 10:11] LABS: MEAN PLATELET VOLUME 7.5 fl (7.4-10.4); PLATELET 120 x1000/uL (130-400)
[2025-01-28] MEDS: CALCIUM GLUCONATE 100MG/ML 10ML VIAL IV ONE ×2 (10:17→10:52)
[2025-01-28] MEDS: CEFTRIAXONE 1GM/50ML 50 ML IV ONE (10:51)
[2025-01-28] MEDS: DEXTROSE 50% WATER 50ML SYRINGE IV ONE (10:56)
[2025-01-28] MEDS: INSULIN REGULAR (HUMULIN R) 1000UNITS/10ML VIAL IV ONE (11:02)
[2025-01-28 11:12] LABS: TROPONIN I HIGH SENSITIVITY 13 ng/L (3.0-53)
[2025-01-28] MEDS ORDERED: GUAIFENESIN 200MG/10ML SUGAR FREE UDC PO PRN (11:15)
[2025-01-28] MEDS ORDERED: ONDANSETRON HCL 4MG/2ML INJ IV PRN (11:15)
[2025-01-28] MEDS ORDERED: ENOXAPARIN 40MG/0.4ML SYR SUBCUT SCH (11:15)
[2025-01-28] MEDS: LOSARTAN 25 MG TABLET PO SCH (11:15)
[2025-01-28] MEDS ORDERED: DOCUSATE SODIUM 100MG CAPSULE PO PRN (11:15)
[2025-01-28] MEDS ORDERED: ACETAMINOPHEN 325MG TABLET PO PRN ×2 (11:15)
[2025-01-28] MEDS ORDERED: MAGNESIUM/ALUMINUM HYDROXIDE/SIMETHICONE 30ML UDC PO PRN (11:15)
[2025-01-28] MEDS: DEXT 5%/0.9% NACL 1,000 ML IV SCH (11:15)
[2025-01-28] MEDS ORDERED: VANCOMYCIN 1.5GM/250ML 250 ML IV SCH (11:30)
[2025-01-28 11:47] LABS: IRON 23 ug/dL (65-175)
[2025-01-28 11:49] LABS: LACTATE DEHYDROGENASE 345 IU/L (120-246)
[2025-01-28 11:50] LABS: TOTAL IRON BINDING CAPACITY 287 ug/dl (250-425)
[2025-01-28] MEDS: PIPERACILLIN/TAZO 3.375G/50ML IV SCH (12:00)
[2025-01-28] MEDS ORDERED: HYDRALAZINE 20MG/ML VIAL IV SCH (12:00)
[2025-01-28] MEDS: INSULIN LISPRO 100 UNITS/ML SUBCUT SCH (13:00)
[2025-01-28] MEDS: BLOOD SUGAR DIAGNOSTIC STRIP TEST SCH (13:16)
[2025-01-28] MEDS: SODIUM CHLORIDE 0.9% 1,000 ML IV ONE (13:17)
[2025-01-28] MEDS ORDERED: PIPERACILLIN/TAZO 3.375G/100ML 100 ML IV SCH (14:00)
[2025-01-28] MEDS: GABAPENTIN 100MG CAPSULE PO SCH (14:00)
[2025-01-28] MEDS: PANTOPRAZOLE SODIUM 40 MG/VIAL IV SCH (15:21)
[2025-01-28] MEDS: VANCOMYCIN 2GM PMX (XELLIA) 400 ML IV SCH (15:21)
[2025-01-28] MEDS: ENOXAPARIN 30MG/0.3ML SYR SUBCUT SCH (15:21)
[2025-01-28] MEDS ORDERED: MIDODRINE HCL 5MG TABLET PO PRN (16:30)
[2025-01-28] MEDS: MIDODRINE HCL 5MG TABLET PO SCH (17:48)
[2025-01-28] MEDS: IPRATROPIUM/ALBUTEROL 0.5-3(2.5)MG/3ML NEB HHN PRN (18:30)
[2025-01-28 21:43] LABS: INFLUENZA TYPE A Presumptive Negative (Pres. Neg.)
[2025-01-28 21:44] LABS: INFLUENZA TYPE B Presumptive Negative (Pres. Neg.)
[2025-01-28 21:45] LABS: RESPIRATORY SYNCYTIAL VIRUS Not Detected (Not Detectd)
[2025-01-28] MEDS: ATORVASTATIN CALCIUM 40MG TABLET PO SCH (22:19)
[2025-01-29] VITALS (23 sets, daily range): BP systolic 92–158; BP diastolic 46–111; PULSE 45–74; RESP 13–26; TEMP 34.00272–36.55848; O2SAT 98–100
[2025-01-29] MEDS: CLOPIDOGREL 75MG TABLET PO SCH (09:00)
[2025-01-29] MEDS: SODIUM ZIRCONIUM CYCLOSILICATE 10GM/PACKET NG NR (09:00)
[2025-01-29] MEDS ORDERED: SODIUM CHLORIDE 0.9% 1,000 ML IV SCH (09:45)
[2025-01-29] MEDS: DEXTROSE 50% WATER 50ML SYRINGE IV NR (10:09)
[2025-01-29] MEDS: CALCIUM GLUCONATE 1GM PREMIX 50 ML IV NR (10:24)
[2025-01-29] MEDS: INSULIN REGULAR (HUMULIN R) 1000UNITS/10ML VIAL IV NR (10:26)
[2025-01-29 10:31] LABS: MEAN CORPUSCULAR HEMOGLOBIN 29.1 pg (28.0-32.0); MEAN CORPUSCULAR HGB CONC 30.6 g/dL (31.0-37.0); MEAN CORPUSCULAR VOLUME 95.2 fL (80.0-94.0); RED BLOOD CELL COUNT 1.93 mill/uL (4.7-6.1); RED CELL DISTRIBUTION WIDTH 26.5 % (11.6-14.6)
[2025-01-29 10:39] LABS: DIFFERENTIAL COMMENT 1
[2025-01-29 10:44] LABS: HEMATOCRIT. 18.4 % (42.0-52.0); HEMOGLOBIN. 5.6 g/dL (14.0-18.0)
[2025-01-29] MEDS: ALBUTEROL (0.083%) 2.5MG/3ML NEB HHN SCH (10:45)
[2025-01-29 10:48] LABS: CHLORIDE 112 mEq/L (98-107); SODIUM 145 mEq/L (136-145)
[2025-01-29 10:49] LABS: CALCIUM 8.7 mg/dL (8.7-10.4); CARBON DIOXIDE 24 mEq/L (21-32)
[2025-01-29 10:51] LABS: T4 FREE 0.85 ng/dL (0.89-1.76)
[2025-01-29 10:52] LABS: THYROID STIMULATING HORMONE 3.06 uIU/mL (0.55-4.78)
[2025-01-29 10:54] LABS: ALANINE AMINOTRANSFERASE 33 IU/L (10-49); GLUCOSE 71 mg/dL (70-105); PROTEIN TOTAL 6.3 g/dL (6.0-8.3); TRIGLYCERIDE 57 mg/dL (0-150); UREA NITROGEN BLOOD 35 mg/dL (9-23)
[2025-01-29 10:55] LABS: LDL CHOLESTEROL 20 mg/dL (5-100)
[2025-01-29 10:56] LABS: ALBUMIN 3.2 g/dL (3.2-4.8); ASPARTATE AMINOTRANSFERASE 26 IU/L (<34); BILIRUBIN DIRECT 0.2 mg/dL (<=3.0); BILIRUBIN TOTAL 0.4 mg/dL (0.1-1.0); CHOLESTEROL 79 mg/dL (<200); HDL CHOLESTEROL 32 mg/dL (>55)
[2025-01-29 11:02] LABS: AMMONIA < 17 uMol/L (<32)
[2025-01-29 11:17] LABS: BG BASE EXCESS -6.4 mmol/L (-2.0-3.0); BG DEOXYHEMOGLOBIN 0.3 % (0.0-5.0); BG FRACTION INSPIRED OXYGEN 100; BG HCO3 ACT 20.6 mmol/L (21.0-28.0); BG METHEMOGLOBIN 0.4 % (0.5-1.5); BG OXYGEN SATURATION 99.7 % (94.0-98.0); BG OXYHEMOGLOBIN 98.3 % (94.0-98.0); BG PCO2 50.8 mmHg (35.0-48.0); BG PH 7.226 (7.350-7.450); BG PO2 377.9 mmHg (83.0-108.0); BG SAMPLE SITE RIGHT RADIAL; BG TOTAL HEMOGLOBIN 5.8 g/dL (13.5-17.5); BG VENT MODE HIGH FLOW
[2025-01-29 11:36] LABS: ANISOCYTOSIS 4+; NUCLEATED RED BLOOD CELLS 22 /100 WBC
[2025-01-29 11:38] LABS: PLATELET ESTIMATE DECREASED
[2025-01-29 11:39] LABS: MEAN PLATELET VOLUME 8.1 fl (7.4-10.4); PLATELET 72 x1000/uL (130-400)
[2025-01-29 11:43] LABS: *AMPHETAMINES SCREEN URINE NEGATIVE (NEGATIVE); *BARBITURATES SCREEN URINE NEGATIVE (NEGATIVE); *BENZODIAZEPINES SCREEN URINE NEGATIVE (NEGATIVE); *COCAINE SCREEN URINE NEGATIVE (NEGATIVE); CANNABINOID URINE SCREEN NEGATIVE (NEGATIVE); ECSTASY MDMA SCREEN URINE NEGATIVE (NEGATIVE); METHADONE URINE SCREEN NEGATIVE (NEGATIVE); OPIATES URINE SCREEN NEGATIVE (NEGATIVE); PHENCYCLIDINE URINE SCREEN NEGATIVE (NEGATIVE)
[2025-01-29 12:17] LABS: POTASSIUM 6.3 mEq/L (3.5-5.1)
[2025-01-29 13:11] LABS: CHLORIDE 116 mEq/L (98-107); POTASSIUM 5.1 mEq/L (3.5-5.1); SODIUM 146 mEq/L (136-145)
[2025-01-29 13:12] LABS: CARBON DIOXIDE 23 mEq/L (21-32)
[2025-01-29 13:17] LABS: CREATININE 1.9 mg/dL (0.6-1.3); UREA NITROGEN BLOOD 33 mg/dL (9-23)
[2025-01-29 13:19] LABS: CREATINE KINASE 49 IU/L (46-171)
[2025-01-29 13:42] LABS: GLUCOSE 29 mg/dL (70-105)
[2025-01-29] MEDS: DEXTROSE 50% WATER 50ML SYRINGE IV PRN (13:51)
[2025-01-29] MEDS ORDERED: DEXTROSE 50% WATER 50ML SYRINGE IV PRN (14:00)
[2025-01-29] MEDS: SODIUM CHLORIDE 0.9% 500 ML IV ONE (17:15)
[2025-01-29] MEDS: DIVALPROEX SODIUM 250MG DR TABLET PO SCH (18:00)
[2025-01-29] MEDS: METHYLPREDNISOLONE SOD SUCC 40MG/ML (ACT-O-VIAL) IV SCH (19:59)
[2025-01-29] MEDS: DEXT 5%/0.45% NACL 1000ML 1,000 ML IV SCH (20:00)
[2025-01-29] MEDS: IPRATROPIUM/ALBUTEROL 0.5-3(2.5)MG/3ML NEB HHN SCH (21:18)
[2025-01-30] VITALS (20 sets, daily range): BP systolic 97–159; BP diastolic 60–85; PULSE 67–91; RESP 18–31; TEMP 36.1–37.2; O2SAT 92–100
[2025-01-30] LABS: HEMATOCRIT 24.7 % (42.0-52.0); HEMOGLOBIN 8.2 g/dL (14.0-18.0)
[2025-01-30 06:47] LABS: CALCIUM 9.2 mg/dL (8.7-10.4)
[2025-01-30 06:52] LABS: CREATININE 2.2 mg/dL (0.6-1.3)
[2025-01-30 07:00] LABS: POTASSIUM 6.4 mEq/L (3.5-5.1)
[2025-01-30] MEDS: ALBUTEROL (0.083%) 2.5MG/3ML NEB HHN NR (07:15)
[2025-01-30 08:31] LABS: BASOPHILS % 0.3 % (0.0-2.0); EOSINOPHILS % 0.1 % (0.0-5.0); HEMATOCRIT. 25.4 % (42.0-52.0); HEMOGLOBIN. 8.4 g/dL (14.0-18.0); MEAN CORPUSCULAR HGB CONC 33.2 g/dL (31.0-37.0); MEAN CORPUSCULAR VOLUME 87.5 fL (80.0-94.0); MEAN PLATELET VOLUME 7.8 fl (7.4-10.4); MONOCYTES % 1.7 % (2.0-8.0); NEUTROPHILS % 85.9 % (40.0-76.0); PLATELET 92 x1000/uL (130-400); RED CELL DISTRIBUTION WIDTH 24.7 % (11.6-14.6); WHITE BLOOD COUNT 2.4 x1000/uL (4.5-11.0)
[2025-01-30] MEDS: SODIUM BICARBONATE 8.4% 50MEQ/50ML SYR IV SCH (08:41)
[2025-01-30] MEDS: SODIUM ZIRCONIUM CYCLOSILICATE 10GM/PACKET PO NR (08:41)
[2025-01-30] MEDS: FAMOTIDINE 20MG/2ML VIAL IV SCH (08:41)
[2025-01-30] MEDS: DEXTROSE 50% WATER 50ML SYRINGE IV SCH (08:41)
[2025-01-30] MEDS: ARIPIPRAZOLE 5MG TABLET PO SCH (08:42)
[2025-01-30] MEDS: INSULIN REGULAR (HUMULIN R) 1000UNITS/10ML VIAL IV NR (08:43)
[2025-01-30 08:44] LABS: DIFFERENTIAL COMMENT 1
[2025-01-30 08:45] LABS: ADD RBC MORPHOLOGY YES
[2025-01-30 11:37] LABS: BG BASE EXCESS -3.9 mmol/L (-2.0-3.0); BG CARBOXYHEMOGLOBIN 1.2 % (0.5-1.5); BG DEOXYHEMOGLOBIN 5.9 % (0.0-5.0); BG FRACTION INSPIRED OXYGEN 32; BG HCO3 ACT 21.4 mmol/L (21.0-28.0); BG METHEMOGLOBIN 0.2 % (0.5-1.5); BG OXYHEMOGLOBIN 92.7 % (94.0-98.0); BG PCO2 39.8 mmHg (35.0-48.0); BG PH 7.348 (7.350-7.450); BG PO2 69.8 mmHg (83.0-108.0); BG SAMPLE SITE RIGHT RADIAL; BG TOTAL HEMOGLOBIN 8.7 g/dL (13.5-17.5); BG VENT MODE NASAL CANNULA
[2025-01-30 15:36] LABS: ANISOCYTOSIS 4+; PLATELET ESTIMATE DECREASED
[2025-01-30] MEDS: AZITHROMYCIN 500 MG TABLET NG SCH (18:39)
[2025-01-30] MEDS: SODIUM ZIRCONIUM CYCLOSILICATE 10GM/PACKET PO SCH (18:39)
[2025-01-30] MEDS: VALPROATE SODIUM 250MG/5ML UDC PO SCH (18:39)
[2025-01-30 19:09] LABS: POTASSIUM 4.8 mEq/L (3.5-5.1)
[2025-01-30 22:04] LABS: POTASSIUM 4.7 mEq/L (3.5-5.1)
[2025-01-31] VITALS (17 sets, daily range): BP systolic 110–158; BP diastolic 62–98; PULSE 71–97; RESP 17–24; TEMP 36.1–36.6; O2SAT 88–100
[2025-01-31 06:33] LABS: CALCIUM 9.4 mg/dL (8.7-10.4); POTASSIUM 4.5 mEq/L (3.5-5.1)
[2025-01-31 06:38] LABS: CREATININE 2.1 mg/dL (0.6-1.3)
[2025-01-31 10:44] LABS: BG CARBOXYHEMOGLOBIN 1.5 % (0.5-1.5); BG FRACTION INSPIRED OXYGEN 32; BG METHEMOGLOBIN 0.2 % (0.5-1.5); BG OXYGEN SATURATION 92.9 % (94.0-98.0); BG OXYHEMOGLOBIN 91.3 % (94.0-98.0); BG PCO2 32.4 mmHg (35.0-48.0); BG PH 7.408 (7.350-7.450); BG PO2 66.5 mmHg (83.0-108.0); BG SAMPLE SITE LEFT RADIAL; BG TOTAL HEMOGLOBIN 9.3 g/dL (13.5-17.5); BG VENT MODE NASAL CANNULA
[2025-01-31] MEDS: SODIUM CHLORIDE 3% FOR INH 4ML NEB INH SCH (12:00)
[2025-01-31] MEDS: ACETYLCYSTEINE 200MG/ML 20% VIAL 4ML INH SCH (12:27)
[2025-01-31] MEDS: HYDRALAZINE 20MG/ML VIAL IV PRN (19:15)
[2025-02-01] VITALS (17 sets, daily range): BP systolic 133–169; BP diastolic 57–99; PULSE 57–84; RESP 14–20; TEMP 36.1–36.9; O2SAT 92–99
[2025-02-01 06:26] LABS: CALCIUM 8.9 mg/dL (8.7-10.4); POTASSIUM 3.8 mEq/L (3.5-5.1)
[2025-02-01 06:32] LABS: CREATININE 1.8 mg/dL (0.6-1.3)
[2025-02-01] MEDS: CLONIDINE 0.1MG TABLET PO PRN (09:50)
[2025-02-02] VITALS (17 sets, daily range): BP systolic 120–166; BP diastolic 55–112; PULSE 50–75; RESP 11–20; TEMP 35.7–36.5; O2SAT 94–99
[2025-02-02 06:50] LABS: POTASSIUM 3.4 mEq/L (3.5-5.1)
[2025-02-02 06:51] LABS: CALCIUM 8.7 mg/dL (8.7-10.4)
[2025-02-02 06:56] LABS: CREATININE 1.7 mg/dL (0.6-1.3)
[2025-02-02] MEDS: POTASSIUM CHLORIDE 20MEQ/PACKET PO SCH (09:32)
[2025-02-02] MEDS: DEXTROSE 5% WATER 1,000 ML IV SCH (10:10)
[2025-02-02 10:18] LABS: HEMATOCRIT. 24.6 % (42.0-52.0); HEMOGLOBIN. 8.2 g/dL (14.0-18.0); MEAN CORPUSCULAR HEMOGLOBIN 29.4 pg (28.0-32.0); MEAN CORPUSCULAR HGB CONC 33.3 g/dL (31.0-37.0); MEAN CORPUSCULAR VOLUME 88.3 fL (80.0-94.0); MEAN PLATELET VOLUME 8.7 fl (7.4-10.4); PLATELET 165 x1000/uL (130-400); RED BLOOD CELL COUNT 2.78 mill/uL (4.7-6.1); RED CELL DISTRIBUTION WIDTH 23.8 % (11.6-14.6)
[2025-02-02 10:35] LABS: DIFFERENTIAL COMMENT 1
[2025-02-02 11:43] LABS: ANISOCYTOSIS 3+; HYPOCHROMASIA 2+; NUCLEATED RED BLOOD CELLS 24 /100 WBC; PLATELET ESTIMATE NORMAL
[2025-02-02] MEDS ORDERED: SODIUM CHLORIDE 3% FOR INH 15ML NEB INH SCH (18:00)
[2025-02-03] VITALS (19 sets, daily range): BP systolic 126–178; BP diastolic 45–98; PULSE 48–82; RESP 11–20; TEMP 35.6–36.3; O2SAT 89–99
[2025-02-03 05:57] LABS: CARBON DIOXIDE 27 mEq/L (21-32); CHLORIDE 110 mEq/L (98-107); POTASSIUM 3.3 mEq/L (3.5-5.1); SODIUM 146 mEq/L (136-145)
[2025-02-03 06:02] LABS: CREATININE 1.5 mg/dL (0.6-1.3); FOLIC ACID (FOLATE) SERUM 5.83 ng/mL (>5.38); GLUCOSE 164 mg/dL (70-105); VITAMIN B12 SERUM 1776 pg/mL (211-911)
[2025-02-03 06:03] LABS: UREA NITROGEN BLOOD 40 mg/dL (9-23)
[2025-02-03 06:30] LABS: BASOPHILS % 0.3 % (0.0-2.0); HEMATOCRIT. 23.8 % (42.0-52.0); LYMPHOCYTES % 10.6 % (20.0-50.0); MEAN CORPUSCULAR HEMOGLOBIN 29.2 pg (28.0-32.0); MEAN CORPUSCULAR HGB CONC 33.4 g/dL (31.0-37.0); MEAN CORPUSCULAR VOLUME 87.4 fL (80.0-94.0); MEAN PLATELET VOLUME 8.5 fl (7.4-10.4); MONOCYTES % 3.2 % (2.0-8.0); NEUTROPHILS % 85.9 % (40.0-76.0); PLATELET 150 x1000/uL (130-400); RED BLOOD CELL COUNT 2.73 mill/uL (4.7-6.1); RED CELL DISTRIBUTION WIDTH 23.1 % (11.6-14.6); WHITE BLOOD COUNT 5.4 x1000/uL (4.5-11.0)
[2025-02-03 06:31] LABS: DIFFERENTIAL COMMENT 1
[2025-02-03] MEDS: POTASSIUM CHLORIDE 20MEQ/PACKET NG NR (08:32)
[2025-02-03] MEDS: SODIUM CHLORIDE 3% FOR INH 4ML NEB INH SCH (16:28)
[2025-02-03 22:00] LABS: BG BASE EXCESS 0.9 mmol/L (-2.0-3.0); BG CARBOXYHEMOGLOBIN 0.7 % (0.5-1.5); BG DEOXYHEMOGLOBIN 1.3 % (0.0-5.0); BG FRACTION INSPIRED OXYGEN 44; BG HCO3 ACT 25.7 mmol/L (21.0-28.0); BG METHEMOGLOBIN 0.1 % (0.5-1.5); BG OXYGEN SATURATION 98.7 % (94.0-98.0); BG OXYHEMOGLOBIN 97.9 % (94.0-98.0); BG PCO2 42.2 mmHg (35.0-48.0); BG PH 7.403 (7.350-7.450); BG PO2 133.9 mmHg (83.0-108.0); BG SAMPLE SITE RIGHT RADIAL; BG TOTAL HEMOGLOBIN 9.5 g/dL (13.5-17.5); BG VENT MODE NASAL CANNULA
[2025-02-04] VITALS (14 sets, daily range): BP systolic 118–171; BP diastolic 62–100; PULSE 47–67; RESP 10–38; TEMP 36.1–37.1; O2SAT 94–100
[2025-02-04 06:46] LABS: CALCIUM 8.4 mg/dL (8.7-10.4); CARBON DIOXIDE 26 mEq/L (21-32); CHLORIDE 107 mEq/L (98-107); POTASSIUM 3.7 mEq/L (3.5-5.1); SODIUM 143 mEq/L (136-145)
[2025-02-04 06:52] LABS: CREATININE 1.3 mg/dL (0.6-1.3); GLUCOSE 196 mg/dL (70-105); UREA NITROGEN BLOOD 34 mg/dL (9-23)
[2025-02-04 07:20] LABS: HEMATOCRIT. 25.5 % (42.0-52.0); HEMOGLOBIN. 8.6 g/dL (14.0-18.0); MEAN CORPUSCULAR HEMOGLOBIN 29.1 pg (28.0-32.0); MEAN CORPUSCULAR HGB CONC 33.6 g/dL (31.0-37.0); MEAN CORPUSCULAR VOLUME 86.8 fL (80.0-94.0); MEAN PLATELET VOLUME 8.7 fl (7.4-10.4); PLATELET 133 x1000/uL (130-400); RED BLOOD CELL COUNT 2.94 mill/uL (4.7-6.1)
[2025-02-04 07:23] LABS: DIFFERENTIAL COMMENT 1
[2025-02-04] MEDS ORDERED: HYDROXYZINE 10MG TABLET NG PRN (15:00)
[2025-02-04 19:14] LABS: NUCLEATED RED BLOOD CELLS 8 /100 WBC
[2025-02-04 19:16] LABS: GIANT PLATELETS FEW; PLATELET ESTIMATE SLIGHTLY DECREASED
[2025-02-04] MEDS: HALOPERIDOL LACTATE 5MG/ML VIAL IM NR (23:24)
[2025-02-05] VITALS (18 sets, daily range): BP systolic 145–174; BP diastolic 62–118; PULSE 51–87; RESP 12–24; TEMP 36–36.8; O2SAT 96–98
[2025-02-05] MEDS: HALOPERIDOL LACTATE 5MG/ML VIAL IM NR (04:10)
[2025-02-05] MEDS ORDERED: HALOPERIDOL LACTATE 5MG/ML VIAL IM PRN (15:15)
[2025-02-05 23:31] LABS: HEMATOCRIT. 23.4 % (42.0-52.0); HEMOGLOBIN. 7.9 g/dL (14.0-18.0); MEAN CORPUSCULAR HEMOGLOBIN 29.4 pg (28.0-32.0); MEAN CORPUSCULAR HGB CONC 33.8 g/dL (31.0-37.0); MEAN CORPUSCULAR VOLUME 86.8 fL (80.0-94.0); MEAN PLATELET VOLUME 8.9 fl (7.4-10.4); PLATELET 134 x1000/uL (130-400); RED BLOOD CELL COUNT 2.69 mill/uL (4.7-6.1); RED CELL DISTRIBUTION WIDTH 23.4 % (11.6-14.6); WHITE BLOOD COUNT 9.3 x1000/uL (4.5-11.0)
[2025-02-05 23:37] LABS: DIFFERENTIAL COMMENT 1; INR 1.1; PROTHROMBIN TIME 11.9 sec (9.6-11.0)
[2025-02-06] VITALS (15 sets, daily range): BP systolic 116–163; BP diastolic 51–132; PULSE 42–61; RESP 9–20; TEMP 34.1–36.3; O2SAT 80–100
[2025-02-06 10:42] LABS: ANISOCYTOSIS 3+; NUCLEATED RED BLOOD CELLS 1 /100 WBC; PLATELET ESTIMATE NORMAL
[2025-02-07] VITALS (21 sets, daily range): BP systolic 108–143; BP diastolic 45–76; PULSE 44–73; RESP 10–22; TEMP 34.4–37.1; O2SAT 83–100
[2025-02-07 03:07] LABS: BASOPHILS % 0.1 % (0.0-2.0); HEMATOCRIT. 21.1 % (42.0-52.0); LYMPHOCYTES % 26.6 % (20.0-50.0); MEAN CORPUSCULAR HEMOGLOBIN 28.2 pg (28.0-32.0); MEAN CORPUSCULAR HGB CONC 32.4 g/dL (31.0-37.0); MEAN CORPUSCULAR VOLUME 87.1 fL (80.0-94.0); MEAN PLATELET VOLUME 8.9 fl (7.4-10.4); NEUTROPHILS % 66.3 % (40.0-76.0); PLATELET 154 x1000/uL (130-400); RED BLOOD CELL COUNT 2.42 mill/uL (4.7-6.1); RED CELL DISTRIBUTION WIDTH 23.7 % (11.6-14.6); WHITE BLOOD COUNT 4.3 x1000/uL (4.5-11.0)
[2025-02-07 03:25] LABS: CHLORIDE 106 mEq/L (98-107); POTASSIUM 3.4 mEq/L (3.5-5.1); SODIUM 143 mEq/L (136-145)
[2025-02-07 03:26] LABS: CALCIUM 7.9 mg/dL (8.7-10.4); CARBON DIOXIDE 32 mEq/L (21-32)
[2025-02-07 03:31] LABS: CREATININE 1.1 mg/dL (0.6-1.3); GLUCOSE 81 mg/dL (70-105); UREA NITROGEN BLOOD 31 mg/dL (9-23)
[2025-02-07 03:33] LABS: ALANINE AMINOTRANSFERASE 24 IU/L (10-49); ALBUMIN 2.7 g/dL (3.2-4.8); ASPARTATE AMINOTRANSFERASE 28 IU/L (<34)
[2025-02-07 03:34] LABS: BILIRUBIN TOTAL 0.7 mg/dL (0.1-1.0)
[2025-02-07 03:39] LABS: INR 1.1; PROTHROMBIN TIME 11.9 sec (9.6-11.0)
[2025-02-07 03:44] LABS: HEMOGLOBIN. 6.8 g/dL (14.0-18.0)
[2025-02-07 03:45] LABS: ADD RBC MORPHOLOGY YES; DIFFERENTIAL COMMENT 1
[2025-02-07] MEDS: FOLIC ACID 1MG TABLET PO SCH (09:16)
[2025-02-07] MEDS: PANTOPRAZOLE SODIUM 40 MG/VIAL IV SCH (10:12)
[2025-02-07 10:46] LABS: HEMATOCRIT 20.4 % (42.0-52.0); HEMOGLOBIN 6.7 g/dL (14.0-18.0)
[2025-02-07 12:15] LABS: BG CARBOXYHEMOGLOBIN 1.9 % (0.5-1.5); BG DEOXYHEMOGLOBIN 0.3 % (0.0-5.0); BG FRACTION INSPIRED OXYGEN 100; BG HCO3 ACT 29.7 mmol/L (21.0-28.0); BG METHEMOGLOBIN 0.4 % (0.5-1.5); BG OXYGEN SATURATION 99.7 % (94.0-98.0); BG OXYHEMOGLOBIN 97.4 % (94.0-98.0); BG PCO2 45.4 mmHg (35.0-48.0); BG PH 7.434 (7.350-7.450); BG PO2 212.5 mmHg (83.0-108.0); BG SAMPLE SITE RIGHT RADIAL; BG TOTAL HEMOGLOBIN 6.2 g/dL (13.5-17.5); BG VENT MODE HIGH FLOW
[2025-02-07 14:29] LABS: ANISOCYTOSIS 3+; HYPOCHROMASIA 1+; PLATELET ESTIMATE NORMAL
[2025-02-07 19:22] LABS: HEMATOCRIT 26.3 % (42.0-52.0); HEMOGLOBIN 8.9 g/dL (14.0-18.0)
[2025-02-07] MEDS: POTASSIUM CHLORIDE 20MEQ/PACKET PO SCH (20:55)
[2025-02-07] MEDS: KCL 20MEQ/100ML PREMIX 100 ML IV NR (21:48)
[2025-02-07 21:49] LABS: PHOSPHORUS 2.6 mg/dL (2.5-4.9)
[2025-02-08] VITALS (16 sets, daily range): BP systolic 131–155; BP diastolic 39–76; PULSE 45–73; RESP 10–18; TEMP 36.1–36.8; O2SAT 92–100
[2025-02-08 06:20] LABS: BASOPHILS % 0.2 % (0.0-2.0); DIFFERENTIAL COMMENT 0; EOSINOPHILS % 1.8 % (0.0-5.0); HEMOGLOBIN. 8.5 g/dL (14.0-18.0); MEAN CORPUSCULAR HGB CONC 32.8 g/dL (31.0-37.0); MEAN CORPUSCULAR VOLUME 88.4 fL (80.0-94.0); MEAN PLATELET VOLUME 8.8 fl (7.4-10.4); MONOCYTES % 2.8 % (2.0-8.0); NEUTROPHILS % 79.2 % (40.0-76.0); PLATELET 143 x1000/uL (130-400); RED BLOOD CELL COUNT 2.94 mill/uL (4.7-6.1); RED CELL DISTRIBUTION WIDTH 21.2 % (11.6-14.6); WHITE BLOOD COUNT 5.9 x1000/uL (4.5-11.0)
[2025-02-08 06:26] LABS: CHLORIDE 106 mEq/L (98-107); POTASSIUM 3.6 mEq/L (3.5-5.1)
[2025-02-08 06:27] LABS: SODIUM 143 mEq/L (136-145)
[2025-02-08 06:28] LABS: CALCIUM 8.2 mg/dL (8.7-10.4); CARBON DIOXIDE 32 mEq/L (21-32)
[2025-02-08 06:33] LABS: CREATININE 1.3 mg/dL (0.6-1.3); GLUCOSE 82 mg/dL (70-105); UREA NITROGEN BLOOD 26 mg/dL (9-23)
[2025-02-08] MEDS: ATROPINE SULFATE 1MG/10ML SYR IV PRN (18:23)
[2025-02-09] VITALS (12 sets, daily range): BP systolic 124–170; BP diastolic 50–91; PULSE 42–60; RESP 10–18; TEMP 36.1–36.3; O2SAT 95–100
[2025-02-09 09:00] LABS: BG BASE EXCESS 7.7 mmol/L (-2.0-3.0); BG CARBOXYHEMOGLOBIN 1.5 % (0.5-1.5); BG DEOXYHEMOGLOBIN 5.7 % (0.0-5.0); BG FRACTION INSPIRED OXYGEN 21; BG METHEMOGLOBIN 0.3 % (0.5-1.5); BG OXYGEN SATURATION 94.2 % (94.0-98.0); BG OXYHEMOGLOBIN 92.5 % (94.0-98.0); BG PCO2 50.8 mmHg (35.0-48.0); BG PH 7.431 (7.350-7.450); BG PO2 71.7 mmHg (83.0-108.0); BG SAMPLE SITE RIGHT RADIAL; BG TOTAL HEMOGLOBIN 9.7 g/dL (13.5-17.5); BG VENT MODE ROOM AIR
[2025-02-10] VITALS (13 sets, daily range): BP systolic 121–161; BP diastolic 49–88; PULSE 43–62; RESP 11–19; TEMP 35.8–36.8; O2SAT 99–100
[2025-02-10] MEDS: PANTOT AC/MIN OIL/PET HY-PHL OINT (AQUAPHOR) TOP SCH (13:24)
[2025-02-11] VITALS (12 sets, daily range): BP systolic 109–165; BP diastolic 46–140; PULSE 42–62; RESP 11–31; TEMP 35.6–36.7; O2SAT 97–100
[2025-02-12] VITALS: BP 144/65; PULSE 64; RESP 16; TEMP 36.7; O2SAT 98
[2025-02-12] MEDS ORDERED: LOSA25TA26 PO (20:08)
[2025-02-12] MEDS ORDERED: BUSP15TA3 PO (20:08)
== END 2025-02-12 02:30 | DRG 871 ==
LOC: ER 08:11 → EDBEDREQ 08:38 → 5EST 09:56 → EDBEDREQSVC 09:57
PROVIDERS: ADMIT Internal Medicine; ATTEND Internal Medicine
PROC: 30233N1 Transfusion of Nonautologous Red Blood Cells into Peripheral Vein, Percutaneous Approach (ICD-10-PCS; principal; 2025-01-29)
PROC: 5A0935A Assistance with Respiratory Ventilation, Less than 24 Consecutive Hours, High Flow/Velocity Cannula (ICD-10-PCS; 2025-01-29)
PROC: 5A09357 Assistance with Respiratory Ventilation, Less than 24 Consecutive Hours, Continuous Positive Airway Pressure (ICD-10-PCS; 2025-01-29)
PROC: 5A0935A Assistance with Respiratory Ventilation, Less than 24 Consecutive Hours, High Flow/Velocity Cannula (ICD-10-PCS; 2025-01-30)
PROC: 5A0945A Assistance with Respiratory Ventilation, 24-96 Consecutive Hours, High Flow/Velocity Cannula (ICD-10-PCS; 2025-01-31)
PROC: 5A0935A Assistance with Respiratory Ventilation, Less than 24 Consecutive Hours, High Flow/Velocity Cannula (ICD-10-PCS; 2025-02-02)
PROC: 5A0935A Assistance with Respiratory Ventilation, Less than 24 Consecutive Hours, High Flow/Velocity Cannula (ICD-10-PCS; 2025-02-03)
PROC: 5A0945A Assistance with Respiratory Ventilation, 24-96 Consecutive Hours, High Flow/Velocity Cannula (ICD-10-PCS; 2025-02-07)
DX: A41.9 Sepsis, unspecified organism (principal); G92.8 Other toxic encephalopathy; J96.01 Acute respiratory failure with hypoxia; J69.0 Pneumonitis due to inhalation of food and vomit; E87.0 Hyperosmolality and hypernatremia; E87.29 Other acidosis; N17.9 Acute kidney failure, unspecified; J98.19 Other pulmonary collapse; D61.818 Other pancytopenia; T17.890A Other foreign object in other parts of respiratory tract causing asphyxiation, initial encounter; D64.9 Anemia, unspecified; E11.22 Type 2 diabetes mellitus with diabetic chronic kidney disease; E87.5 Hyperkalemia; I12.9 Hypertensive chronic kidney disease with stage 1 through stage 4 chronic kidney disease, or unspecified chronic kidney disease; I45.10 Unspecified right bundle-branch block; N18.9 Chronic kidney disease, unspecified; R65.20 Severe sepsis without septic shock; D69.6 Thrombocytopenia, unspecified; E61.1 Iron deficiency; E86.0 Dehydration; R79.89 Other specified abnormal findings of blood chemistry; R00.1 Bradycardia, unspecified; K21.9 Gastro-esophageal reflux disease without esophagitis; I44.0 Atrioventricular block, first degree; I65.22 Occlusion and stenosis of left carotid artery; F31.9 Bipolar disorder, unspecified; F20.9 Schizophrenia, unspecified; R13.12 Dysphagia, oropharyngeal phase; F03.90 Unspecified dementia, unspecified severity, without behavioral disturbance, psychotic disturbance, mood disturbance, and anxiety; F17.210 Nicotine dependence, cigarettes, uncomplicated; B37.9 Candidiasis, unspecified; Z74.01 Bed confinement status; Z78.1 Physical restraint status; Z79.02 Long term (current) use of antithrombotics/antiplatelets; Z79.4 Long term (current) use of insulin; Z79.899 Other long term (current) drug therapy; W44.F9XA Other object of natural or organic material, entering into or through a natural orifice, initial encounter; Y93.89 Activity, other specified; Y92.89 Other specified places as the place of occurrence of the external cause; Y99.8 Other external cause status
CPT/HCPCS: 36415; 36600; 71045; 71250; 76770; 80048; 80053; 80061; 80076; 80202; 80305; 81003; 82140; 82375; 82550; 82607; 82746; 82805; 82962; 83540; 83550; 83605; 83615; 83735; 84100; 84132; 84145; 84153; 84439; 84443; 84484; 85014; 85018; 85025; 85044; 85379; 85384; 86850; 86900; 86920; 87077; 87420; 87804; 92610; 93005; 93306; 93970; 94070; 94640; 94660; 94664; 94667; 97163; 97164; 97167; 97168; 97530; 99291; A4606; J0360; J0456; J0461; J0610; J0696; J1308; J1630; J1650; J1815; J2470; J2543; J2919; J3370; J3480; J3490; J7070; J7608; P9016